=== PATIENT | female | born 1960 | race Caucasian/White ===

== ENCOUNTER 2019-03-17 06:57 | Day surgery (SDC) | payer OTHER ==
[~2019-03-17] VITALS: Ht 152.4 cm; Wt 52.7 kg
[~2019-03-17 06:57] MED LIST: ASCO500 PO; Armour Thyroid120 MG PO; Istalol2.5 ML; LORA1 PO; MAGNESIUM100 MG PO; MULTI VITAMIN1 EACH PO; PROBIOTIC250 MG PO; St. John's Wor300 MG PO
[2019-03-17] MEDS ORDERED: Xalatan2.5 ML (07:26)
--- NOTE | 2019-03-17 07:50 | NUR ---
03/17/19 0750 Viviana Cespedes 1ST IV ATTEMPT IN LH BY ORSC.CMT UNSUCCESSFUL, PT STATES HER NERVE WAS HIT AND HAD ORSC.CMT TAKE IT OUT BEFORE IT WAS CONNECTED TO FLUIDS BECAUSE IT WAS PAINFUL. ORSC.FLL RESTARTED THE IV IN LEFT WRIST AND IT RUNS GREAT AND NO COMPLAINTS OF PAIN. APPLIED WARM COMPRESS TO LH TO HELP WITH DISCOMFORT.
== END 2019-03-17 11:15 | disposition home or self-care (01) ==
LOC: ORSCSDS 06:57
PROVIDERS: Otolaryngology
PROC: 09B0XZZ Excision of Right External Ear, External Approach (ICD-10-PCS; principal; 2019-03-17 08:15)
PROC: 09R777Z Replacement of Right Tympanic Membrane with Autologous Tissue Substitute, Via Natural or Artificial Opening (ICD-10-PCS; principal; 2019-03-17 08:15)
DX: H72.2X1 Other marginal perforations of tympanic membrane, right ear (principal); E03.9 Hypothyroidism, unspecified; Z87.891 Personal history of nicotine dependence; Z79.899 Other long term (current) drug therapy
CPT/HCPCS: J0171; J1100; J1885; J2370; J2405; J2704; J2765; J3010; J7120